=== PATIENT | female | born 1990 | race Two or more races ===

== ENCOUNTER 2025-05-03 06:03 | Emergency (ER) | payer SELFPAY ==
[2025-05-03 06:04] VITALS: BMI 25.0
--- NOTE | 2025-05-03 06:20 | PC.NURSE ---
pt stated she was going to her car and would be right back.
--- NOTE | 2025-05-03 06:25 | PC.NURSE ---
pt called from lobby no answer
--- NOTE | 2025-05-03 06:37 | PC.NURSE ---
per security pt got in car and drove away.
== END 2025-05-03 06:40 | disposition left against medical advice (07) ==
LOC: SERX 06:54
PROVIDERS: Emergency Provider Family Medicine
DX: Z53.21 Procedure and treatment not carried out due to patient leaving prior to being seen by health care provider (principal)
CPT/HCPCS: 99281